=== PATIENT | female | born 1945 | race Caucasian/White ===

== ENCOUNTER 2024-01-10 21:32 | Emergency (ER) | payer MEDICARE, OTHER, SELFPAY ==
[2024-01-10 21:40] VITALS: BP 104/51
[2024-01-10 21:42] VITALS: BP 104/51; BMI 33.0
[2024-01-10 21:45] LABS: % Basophils 0.4 % (0-2); % Eosinophils 1.5 % (0-6); % Immature Granulocytes 0.3 % (0-0.5); % Lymphocytes 1.7 % (20.5-51.1); % Monocytes 2.3 % (1.7-9.3); % Neutrophils 93.8 % (42.2-75.2); Absolute Eosinophils 0.1 10^3/uL (0-0.7); Absolute Lymphocytes 0.1 10^3/uL (1.2-3.4); Absolute Monocytes 0.2 10^3/uL (0.1-0.6); Absolute Neutrophils 6.4 10^3/uL (1.4-6.5); Hematocrit 33.3 % (37.0-47.0); Hemoglobin 11.4 g/dL (12.0-16.0); Mean Corp Hgb Conc. 34.2 g/dL (33.0-37.0); Mean Corpuscular Hgb 31.2 pg (27.0-31.0); Mean Corpuscular Volume 91.2 fL (81.0-99.0); Mean Platelet Volume 9.5 fL (7.4-10.4); Nucleated Red Blood Cells % 0 %; Platelet Count 160 10^3/uL (130-400); Red Blood Cell Count 3.65 10^6/uL (4.20-5.40); Red Cell Dist. Width 13.3 % (11.5-14.5); White Blood Cell Count 6.9 10^3/uL (4.8-10.8)
[2024-01-10 21:59] LABS: ALT (SGPT) 26 U/L (0-35); AST (SGOT) 30 U/L (14-36); Albumin 3.5 g/dl (3.5-5.0); Alkaline Phosphatase 54 U/L (38-126); Blood Urea Nitrogen 26 mg/dl (7-17); Calcium 8.7 mg/dl (8.4-10.2); Carbon Dioxide 20 mmol/L (22-30); Chloride 107 mmol/L (98-107); Estimated Creatinine Clearance 43 ml/min; Glucose 142 mg/dl (70-99); Sodium 136 mmol/L (135-145); Total Protein 5.6 g/dl (6.3-8.2); eGFR 46.91
[2024-01-10 22:00] VITALS: BP 107/48
[2024-01-10] MEDS: NSS 1000 IV (22:47)
--- NOTE | 2024-01-10 22:47 | ED.GENMED ---
History of Present Illness
General
Chief Complaint: Fainting/Passed Out
Source: patient
Exam Limitations: none
Time Seen by Provider: 01/10/24 22:24
Nursing documentation reviewed up to this point in time: agreed with
History of Present Illness
History of Present Illness:
This a pleasant 78-year-old female who presents with syncopal episode. Patient states that she was playing golf all day. She was feeling weak after the round. She went home and felt very flushed and warm. She had previous plans with another
couple to go to dinner. She did not really feel up to it but she went anyway. They drove 40 minutes to dinner. Patient ordered a meal. She did not eat it once it arrived. She states that she disengaged with the conversation because she did not
feel well. She wanted to get up to go outside to get some fresh air when she felt weak. stated that her eyes rolled in the back of her head and she briefly passed out. was not completely sure but he thought that it looked like she
had right-sided facial droop for a brief incident. Patient has a history of atrial fibrillation with RVR but states that she had an ablation at has not had any of those symptoms. Denies chest pain or shortness of breath. Reports no palpitations.
Review of Systems
Review of Systems
Allergies reviewed?: Yes
Other source history: family
All Other Systems: ROS reviewed and negative except as documented in HPI and ROS
Constitutional: Reports no symptoms
EENT: Reports no symptoms
Respiratory: Reports no symptoms
Cardiac: Reports no symptoms
ABD/GI: Reports no symptoms
: Reports no symptoms
Musculoskeletal: Reports no symptoms
Skin: Reports no symptoms
Neurological: Reports no symptoms
Endocrine: Reports no symptoms
Hematologic/Lymphatic: Reports no symptoms
Psychiatric: Reports no symptoms
Phy Exam
General Physical Exam
General Presentation: well appearing and no apparent distress
General Skin: warm and dry
General Habitus: normal
General Mental: alert
General Hydration: appears well hydrated
ENT Exam
ENT Exam: EOMI, pharynx normal, neck supple and normocephalic
Eye Exam
Eye Exam: PERRL, cornea clear and conjunctiva normal
Cardiovascular Exam
Cardiovascular Exam: regular rate/rhythm, no edema, no murmur and normal peripheral pulses
Pulmonary Exam
Pulmonary Exam: lungs clear, no respiratory distress, no rales, no crackles, no rhonchi, no stridor, no wheezing and no cough
Gastrointestinal Exam
Gastrointestinal Exam: normal bowel sounds, non tender, soft, no organomegaly, no pulsatile mass and non distended
Neurological Exam
Neurological Exam: alert, oriented x3, no motor deficits and speech normal
Musculoskeletal Exam
Musculoskeletal Exam: full ROM and no edema
Skin Exam
Skin Exam: normal color, warm/dry, no rash and no petechia
Psychiatric Exam
Psychiatric Exam: normal mood/affect
Course
Orders/Labs/Results
Orders:
Orders
01/10/24 21:38
Electrocardiogram (*1) Urgent
Reason for Study: Syncope
EKG- Treatment ONCE
01/10/24 21:40
Complete Blood Count/With Diff Urgent
Comprehensive Metabolic Panel Urgent
01/10/24 22:32
0.9% Sodium Chloride 1000 ml [Nss] 1,000 ml IV BOLUS
01/10/24 22:44
CT Head W/o Iv Contrast Urgent
Comment:
Reason For Exam: syncopy with possible r weakness
Abnormal Lab Results
01/10/24
21:40
RBC 3.65 L 10^6/uL
(4.20-5.40)
Hgb 11.4 L g/dL
(12.0-16.0)
Hct 33.3 L %
(37.0-47.0)
MCH 31.2 H pg
(27.0-31.0)
Absolute Lymphs (auto) 0.1 L 10^3/uL
(1.2-3.4)
Neutrophils % 93.8 H %
(42.2-75.2)
Lymphocytes % 1.7 L %
(20.5-51.1)
Carbon Dioxide 20 L mmol/L
(22-30)
BUN 26 H mg/dl
(7-17)
Creatinine 1.2 H mg/dL
(0.6-1.0)
Glucose 142 H mg/dl
(70-99)
Total Protein 5.6 L g/dl
(6.3-8.2)
01/10/24 21:40
01/10/24 21:40
Vital Signs
Initial and Last Documented VS:
Initial Vital Signs
Pulse
78
01/10/24 21:38
Last Documented Vital Signs
Temp Pulse Resp BP Pulse Ox
97.6 F 66 21 118/56 100
01/10/24 21:42 01/11/24 00:37 01/11/24 00:32 01/11/24 00:37 01/11/24 00:37
*Critical Care Note
Total Time (30-74mins, 75-104mins- exclusive of procedures): Not Applicable
Update Note
Update Note:
CT head
IMPRESSION:
No acute intracranial hemorrhage, mass or mass-effect.
White matter small vessel ischemic disease.
Chronic appearing right caudate, anterior limb internal capsule, and basal ganglia lacunar infarct.
Additional chronic appearing lacunar infarct left external capsule.
Patient is completely asymptomatic and wishes to be discharged. is in agreement. We did discuss return to ER instructions. They verbalized good understanding and was able to ambulate. Orthostatics normal
ED Attending Note
-
Portions of this chart may have been created with voice recognition software.� Occasional wrong word or��sound alike� substitutions may have occurred due to the inherent limitations of voice recognition software.
Discharge Plan
Departure
Patient Disposition: Home (Routine Discharge)
Date of Disposition: 01/11/24
Time of Disposition: 00:37
Patient with high blood pressure during this ER visit?: No
Condition: Good
Discharge Problem:
Syncope, Dizziness
Instructions: Syncope (Fainting) (DC), Dehydration, Adult ED
Prescriptions:
No Action
metoprolol succinate 50 MG tablet extended release 24 hr
50 mg PO DAILY
atorvastatin 40 mg Tablet
40 mg PO DAILY
aspirin 81 mg Tablet,Delayed Release (Dr/Ec)
81 mg PO DAILY
lisinopril 10 mg Tablet
10 mg PO DAILY
Referrals:
Guera Looney CRNP [Family Provider] -
Activity Restrictions/Additional Instructions:
It was a pleasure meeting you and taking part in your care. We hope for your continued healing and wellness.
Please read discharge instructions in their entirety. However, they are for general education and may not describe your exact diagnosis at discharge. Information on your ER visit and medical conditions were discussed with you along with appropriate
follow up information...
If indicated, please take your medications as instructed and indicated on discharge paperwork.
Please schedule a follow up appointment as directed. Call to schedule an appointment
Please return to the emergency department with ANY change in, persisting, or worsening of symptoms. If any of your symptoms do not improve, or persist, or become more severe within 6-12 hours, please return to the emergency department for further
care.
Please return to the emergency department if you develop a headache, neck pain/stiffness, fever greater than 100.4F, chest pain, shortness of breath, persistent nausea, vomiting, slurred speech, difficulty walking, numbness/tingling, weakness, signs
of infection or any other symptoms that are worrisome to you.
If you have any questions or concerns please do not hesitate to call the Hospital at or E-mail me directly at [email or web address]
Interventions
Interventions:
*Risk Screen - Suicide Last Done: 01/10/24 21:42
*General Assessment Last Done: 01/10/24 21:42
*Neglect/Abuse Screening Last Done: 01/10/24 21:42
ED- Fall Risk Assessment Last Done: 01/10/24 21:59
*ED COVID-19 Vaccine History Last Done: 01/10/24 21:53
*Nursing Disposition Last Done: 01/11/24 01:07
ED- Cardiac Assessment Last Done: 01/10/24 21:59
ED- Neurological Assessment Last Done: 01/10/24 21:59
Discharge Date and Time
Discharge Date/Time: 01/11/24 01:08
Print Language: BENGALI
[2024-01-10 23:00] VITALS: BP 106/48
[2024-01-11 00:11] VITALS: BP 111/53
[2024-01-11 00:32] VITALS: BP 106/60; BP 115/62; BP 118/56; PULSE 68; PULSE 70
[2024-01-11 00:35] VITALS: BP 115/62
[2024-01-11 00:37] VITALS: BP 118/56
== END 2024-01-11 01:08 | disposition home or self-care (01) ==
LOC: EMR 21:32
PROVIDERS: EMERGENCY PHYSICIAN Student in an Organized Health Care Education/Training Program; FAMILY PHYSICIAN Nurse Practitioner
DX: R55 Syncope and collapse (principal); R42 Dizziness and giddiness; I48.91 Unspecified atrial fibrillation
CPT/HCPCS: 99284; 96360; 70450; 80053; 85025; 93005

== ENCOUNTER → 2024-04-19 15:02 | Outpatient (REF) | payer MEDICARE, OTHER, SELFPAY | LOC: WDC 15:02 | PROVIDERS: ATTENDING PHYSICIAN Hospitalist | DX: Z12.31 Encounter for screening mammogram for malignant neoplasm of breast (principal) | CPT/HCPCS: 77063; 77067 ==

== ENCOUNTER → 2025-06-28 12:24 | Outpatient (REF) | payer MEDICARE, OTHER, SELFPAY | LOC: WDC 12:24 | PROVIDERS: ATTENDING PHYSICIAN Obstetrics & Gynecology Gynecology; FAMILY PHYSICIAN Internal Medicine | DX: Z12.31 Encounter for screening mammogram for malignant neoplasm of breast (principal) | CPT/HCPCS: 77063; 77067 ==